=== PATIENT | male | born 1950 | race Caucasian/White ===

== ENCOUNTER → 2019-11-02 | Outpatient (CLI) | payer OTHER | LOC: SJCVC 10:07 | DX: R94.31 Abnormal electrocardiogram [ECG] [EKG] (principal); I45.2 Bifascicular block; R00.2 Palpitations; I71.2 Thoracic aortic aneurysm, without rupture; R93.1 Abnormal findings on diagnostic imaging of heart and coronary circulation; E78.5 Hyperlipidemia, unspecified; Q21.0 Ventricular septal defect ==

== ENCOUNTER → 2020-06-11 | Outpatient (CLI) | payer OTHER | LOC: SJCVC 07:41 → SJCVCIMAG 09:46 | PROVIDERS: ATTEND Internal Medicine | DX: I07.1 Rheumatic tricuspid insufficiency (principal); R94.31 Abnormal electrocardiogram [ECG] [EKG]; I44.0 Atrioventricular block, first degree; I45.10 Unspecified right bundle-branch block; I71.2 Thoracic aortic aneurysm, without rupture; E78.5 Hyperlipidemia, unspecified; Z79.899 Other long term (current) drug therapy ==

== ENCOUNTER → 2020-12-03 | Outpatient (CLI) | payer OTHER | LOC: SJCVC 10:06 | PROVIDERS: ATTEND Internal Medicine | DX: R94.31 Abnormal electrocardiogram [ECG] [EKG] (principal); I45.2 Bifascicular block; I44.0 Atrioventricular block, first degree; R00.2 Palpitations; I71.2 Thoracic aortic aneurysm, without rupture; R93.1 Abnormal findings on diagnostic imaging of heart and coronary circulation; E78.5 Hyperlipidemia, unspecified; I45.10 Unspecified right bundle-branch block; Q21.0 Ventricular septal defect; I11.9 Hypertensive heart disease without heart failure; E78.00 Pure hypercholesterolemia, unspecified; Z79.82 Long term (current) use of aspirin; Z79.899 Other long term (current) drug therapy ==

== ENCOUNTER → 2021-06-16 | Outpatient (CLI) | payer OTHER | LOC: SJCVCIMAG 09:16 | PROVIDERS: ATTEND Internal Medicine | DX: I70.1 Atherosclerosis of renal artery (principal); I45.2 Bifascicular block; R94.31 Abnormal electrocardiogram [ECG] [EKG]; R93.1 Abnormal findings on diagnostic imaging of heart and coronary circulation; I71.2 Thoracic aortic aneurysm, without rupture; I49.3 Ventricular premature depolarization; E78.00 Pure hypercholesterolemia, unspecified; E78.5 Hyperlipidemia, unspecified; I45.10 Unspecified right bundle-branch block; I11.9 Hypertensive heart disease without heart failure; Q21.0 Ventricular septal defect; Z79.82 Long term (current) use of aspirin; Z79.899 Other long term (current) drug therapy ==